=== PATIENT | male | born 1950 | race Caucasian/White ===

== ENCOUNTER 2017-07-31 15:47 | Emergency (ER) | payer MEDICARE, MEDICAID ==
[~2017-07-31] VITALS: Ht 182.9 cm; Wt 108.9 kg
[2017-07-31 15:47] VITALS: BP_SYST 156
--- NOTE | 2017-07-31 15:47 | NUR ---
Patient was brought back to bed 1 and triaged at bedside. C/O mid-chest pressure 8/10 with radiation to left arm, left jaw and diaphoresis. EKG completed immediately. Assumed care of patient.
--- NOTE | 2017-07-31 15:50 | NUR ---
Spoke with Dr. King at [facility] regarding transfer of patient. Dr. King states he will accept the patient.
--- NOTE | 2017-07-31 15:50 | NUR ---
ER Dr. Grande at bedside for examination.
[2017-07-31] MEDS ORDERED: ASPIRIN 81 MG TABLET(ECOTRIN) ONE (15:59)
--- NOTE | 2017-07-31 15:59 | NUR ---
Patient medicated with NTG 1 spray SL as ordered.
[2017-07-31] MEDS ORDERED: NITROGLYCERIN LINGUAL 400 mCg/SPRAY ONE (16:00)
[2017-07-31] MEDS ORDERED: NITROGLYCERIN LINGUAL 400 mCg/SPRAY SL ONE (16:00)
--- NOTE | 2017-07-31 16:02 | NUR ---
Patient reports slight relief of CP 12/24. BP stable. Second dose of NTG given.
--- NOTE | 2017-07-31 16:05 | NUR ---
Patient states that his pain is nearly resolved 09/23. NTG not repeated at this time.
--- NOTE | 2017-07-31 16:07 | NUR ---
Patient is enroute to [facility] with [employer] and [facility]. Dr. King is accepting. Nurse to nurse was not called and report will be relayed by paramedics.
[2017-07-31 16:32] LABS: HEMATOCRIT 52.4 % (36-54); HEMOGLOBIN 17.2 g/dL (14.0-18.0); MEAN CORPUSCULAR HEMOGLOBIN 32 pg (27-31); MEAN CORPUSCULAR HGB CONC 33 % (32-36); MEAN CORPUSCULAR VOLUME 96 fL (79.0-98.0); PLATELET COUNT (AUTO) 274 K/uL (130-430); RED BLOOD CELL COUNT(AUTO) 5.44 MIL/uL (4.2-6.2); RED CELL DISTRIBUTION WIDTH 12.5 % (9.0-15.0); WHITE BLOOD COUNT (AUTO) 10.5 K/uL (4.8-10.8)
[2017-07-31 16:41] LABS: CALCIUM 9.7 mg/dL (8.4-11.0); CREATININE 1.06 mg/dL (0.55-1.30); POTASSIUM 3.5 mmol/L (3.5-5.1)
[2017-07-31 16:44] LABS: INR 1.1 (0.80-1.20); PROTHROMBIN TIME 11.1 SECS (9.5-12.5)
[2017-07-31 16:49] LABS: TOTAL BILIRUBIN 0.4 mg/dL (0.0-1.0)
[2017-07-31 16:56] LABS: BAND % (MANUAL) 0 % (0-6); BASOPHILS % (MANUAL) 0 % (0-2); EOSINOPHILS % (MANUAL) 2 % (0-7); LYMPHOCYTES % (MANUAL) 25 % (20-46); MONOCYTES % (MANUAL) 9 % (0-11)
== END 2017-07-31 16:07 | disposition short-term general hospital (02) ==
LOC: SED 15:47
DX: I21.3 ST elevation (STEMI) myocardial infarction of unspecified site (principal); I10 Essential (primary) hypertension; F17.200 Nicotine dependence, unspecified, uncomplicated; Z90.89 Acquired absence of other organs; Z90.49 Acquired absence of other specified parts of digestive tract
CPT/HCPCS: 36415; 80053; 83880; 84484; 85007; 85027; 85610-TC; 85730-TC; 93005; 99285